=== PATIENT | female | born 1975 | race Hispanic/Latino ===

== ENCOUNTER 2019-09-09 14:14 | Emergency (ER) | payer SELFPAY ==
[~2019-09-09] VITALS: Ht 160 cm; Wt 81.6 kg
[2019-09-09 16:30] LABS: BILIRUBIN,URINE NEGATIVE (NEGATIVE); CLARITY,URINE HAZY (CLEAR); COLOR,URINE YELLOW (YELLOW); KETONES,URINE NEGATIVE (NEGATIVE); LEUKOCYTE ESTERASE ,URINE NEGATIVE (NEGATIVE); NITRITE,URINE NEGATIVE (NEGATIVE); PROTEIN,URINE DIPSTICK NEGATIVE (NEGATIVE); URINE UROBILINOGEN 0.2 mg/dL (0.2 - 1)
[2019-09-09 16:31] LABS: PREGNANCY TEST, URINE NEGATIVE (NEGATIVE)
[2019-09-09 16:33] LABS: BACTERIA,URINE FEW /HPF; EPITHELIAL CELLS,URINE FEW /LPF; RBC,URINE 0-5 /HPF (0-5); WBC,URINE (MAN) 0-5 /HPF (0-5)
[2019-09-09 16:38] VITALS: BP 124/72
--- NOTE | 2019-09-09 17:06 | Emergency Department Note ---
History of Present Illnes History of Present Illness Chief Complaint: General Medicine Complaints History of Present Illness This is a 44 year old female PATIENT IN FROM HOME WITH COMPLAINTS OF DIZZINESS, SWELLING IN HER FEET, WEAKNESS X 1 WEEK; PATIENT STATES "I DON'T FEEL LIKE I AM GETTING ENOUGH BLOOD TO MY BRAIN". PATIENT ALERT AND ORIENTED, RESP EVEN AND NONLABORED, APPEARS IN NO DISTRESS. PATIENT AFEBRILE, WITH O2 SATS 98% ON ROOM AIR. PATIENT ABLE TO SPEAK IN FULL SENTENCES AND AMBULATORY WITH A STEADY GAIT WITHOUT ASSISTANCE, NO EDEMA NOTED TO BILATERAL LOWER EXTREMITIES. Historian: Patient, Family Member Arrival Mode: Car Bronzer Required: No Onset (how long ago): week(s) (1) Location: NO PAIN Radiation: Reports non-radiation Severity: mild Onset quality: gradual Progression: improving Chronicity: new Context: Denies recent illness Relieving factors: none Exacerbating factors: none Associated symptoms: Reports denies other symptoms Treatments prior to arrival: none Past Medical/Family History Physician Review I have reviewed the patient's past medical and family history. Any updates have been documented here. Past Medical History Recent Fever: No Clinical Suspicion of Infectio: No New/Unexplained Change in Ment: No Past Medical History: Kidney Stones Other Medical History: "RETAINING FLUID" Past Surgical History: None Other Surgery: LEFT KIDNEY STENT Social History Smoking Cessation: Never Smoker Counseling Performed: No Alcohol Use: None Any Illegal Drug Use: No TB Exposure/Symptoms: No Physically hurt or threatened: No Family History Family history of heart diseas: No Other Last Tetanus: UTD Any Pre-Existing Lines (PICC,: No Is patient up to date on immun: No Last Flu: unk Last Pneumovax: ood Review of Systems Review of Systems Constitutional: Reports as per HPI EENTM: Reports no symptoms Cardiovascular: Reports no symptoms Respiratory: Reports no symptoms Gastrointestinal: Reports no symptoms Genitourinary: Reports no symptoms Musculoskeletal: Reports no symptoms Integumentary: Reports no symptoms Neurological: Reports no symptoms Psychological: Reports no symptoms Endocrine: Reports no symptoms Hematological/Lymphatic: Reports no symptoms Physical Exam Related Data Allergies: Coded Allergies: No Known Allergies (Unverified , 04/02/19) Triage Vital Signs Vital Signs Date Time Temp Pulse Resp B/P (MAP) Pulse Ox O2 Delivery O2 Flow Rate FiO2 09/09/19 14:23 97.8 70 16 135/81 98 Vital signs reviewed: Yes Physical Exam CONSTITUTIONAL Constitutional: Present well-developed, Present well-nourished HENT HENT: Present normocephalic, Present atraumatic, Present oropharynx clear/moist, Present nose normal HENT L/R: Present left ext ear normal, Present right ext ear normal EYES Eyes: Reports PERRL, Reports conjunctivae normal NECK Neck: Present ROM normal PULMONARY Pulmonary: Present effort normal, Present breath sounds normal CARDIOVASCULAR Cardiovascular: Present regular rhythm, Present heart sounds normal, Present capillary refill normal, Present normal rate GASTROINTESTINAL Abdominal: Present soft, Present nontender, Present bowel sounds normal GENITOURINARY Genitourinary: Present exam deferred SKIN Skin: Present warm, Present dry MUSCULOSKELETAL Musculoskeletal: Present ROM normal NEUROLOGICAL Neurological: Present alert, Present oriented x 3, Present DTRs normal, Present no gross motor or sensory deficits PSYCHOLOGICAL Psychological: Present mood/affect normal, Present judgement normal Results Laboratory Laboratory Laboratory Tests Test 09/09/19 16:02 Urine Color Yellow (YELLOW) Urine Clarity Hazy (CLEAR) Urine pH 5.5 (5 - 7) Urine Specific Powell 1.015 (1.010-1.025) Urine Protein Negative (NEGATIVE) Urine Glucose (UA) Negative (NEGATIVE) Urine Ketones Negative (NEGATIVE) Urine Blood 1+ (NEGATIVE) Urine Nitrite Negative (NEGATIVE) Urine Bilirubin Negative (NEGATIVE) Urine Urobilinogen 0.2 mg/dL (0.2 - 1) Urine Leukocyte Esterase Negative (NEGATIVE) Urine RBC 0-5 /HPF (0-5) Urine WBC 0-5 /HPF (0-5) Urine Epithelial Cells Few /LPF (NONE) Urine Bacteria Few /HPF (NONE) Urine Test Negative (NEGATIVE) Lab results reviewed: Yes Assessment & Plan Medical Decision Making MDM MULTIPLE COMPLAINTS, NORMAL EXAM, DOES NOT APPEAR ILL - WILL JUST CHECK UA AND PREG Reassessment Reassessment DC WITH MECLIZINE Assessment & Plan Final Impression: (1) Dizziness Depart Disposition: HOME, SELF-CARE Last Vital Signs Date Time Temp Pulse Resp B/P (MAP) Pulse Ox O2 Delivery O2 Flow Rate FiO2 09/09/19 16:38 57 16 100 09/09/19 16:36 124/72 09/09/19 14:23 97.8 EMERITA SANTANA MD Sep 09, 2019 17:06
== END 2019-09-09 17:49 | disposition home or self-care (01) ==
LOC: ER 14:14
DX: R42 Dizziness and giddiness (principal); M79.89 Other specified soft tissue disorders
CPT/HCPCS: 81001; 81025; 87086; 99282

== ENCOUNTER 2019-10-21 10:18 | Emergency (ER) | payer SELFPAY ==
[~2019-10-21] VITALS: Ht 160 cm; Wt 81.6 kg
--- OUTSIDE RECORDS SUMMARY | 2019-10-21 10:49 | XMS REPORT | Continuity of Care Document ---
Author Author [facility] t Organization [facility] Address [address] [place] [address] Phone Unavailable Care Team Providers Care Route Specialist Name Role Phone NO, PCP PCP Unavailable Margaux SANTANA Attphys Unavailable SELVIN GONZALEZ Attphys Unavailable Problems Condition Name Condition Details Condition Category Status Onset Date Resolution Date Last Treatment Date Treating Clinician Comments Source Dizziness Problem Active [facility] Allergies, Adverse Reactions, Alerts This patient has no known allergies or adverse reactions. Social History Social Habit Start Date Stop Date Quantity Comments Source Sex Assigned At 1975 00:00:00 1975 00:00:00 Female [facility] Medications This patient has no known medications. Vital Signs Vital Name Observation Time Observation Value Comments Source Weight 2019-09-09 14:23:00 180 [lb_av] [facility] BMI (Body Mass Index) 2019-09-09 14:23:00 31.9 kg/m2 [facility] Body Temperature 2019-04-02 21:55:00 97.8 [degF] [facility] Procedures This patient has no known procedures. Plan of Care Planned Activity Planned Date Details Comments Source Instructions Dizziness [facility] Encounters Start Date/Time End Date/Time Encounter Type Admission Type [facility] Facility Care Department Encounter ID Source 2019-09-09 14:14:00 2019-09-09 17:49:00 Departed Emergency Room [id number] [facility] 2019-04-14 11:34:00 2019-04-14 16:06:00 Departed Emergency Room 1 SWEET, [facility] [id number] [facility] 2019-04-07 11:38:00 2019-04-07 14:22:00 Departed Emergency Room 1 EMERITA SANTANA [facility] [id number] [facility] 2019-04-02 15:48:00 2019-04-02 20:35:00 Departed Emergency Room 1 SELVIN GONZALEZ [facility] [id number] I [facility] Results Test Description Test Time Test Comments Results Result Comments Source Urine color determination 2019-09-09 16:02:00 Test Item Urine Color (test code = 5778-6) YELLOW YELLOW [facility] pvfqvxy9693-88-75 16:02:00* Test Item Value Reference Range Interpretation Comments Urine Clarity (test code = 87859-7) [facility] by Test strip 2019-09-09 16:02:00* Test Item Value Reference Range Interpretation Comments Urine Specific [place] (test code = 5811-5) 1.015 1.010-1.02 5 [facility] pH measurement by automated test betda3264-63-98 16:02:00* Test Item Value Reference Range Interpretation Comments Urine pH (test code = 54957-2) 5.5 5-7 [facility] ChildrenU[facility] leukocyte esterase detection by mvdxzbpo9342-71-29 16:02:00* Test Item Value Reference Range Interpretation Comments Urine Leukocyte Esterase (test code = 5799-2) NEGATIVE NEGATIVE [facility] Children[facility] nitrite yqjataxqc4140-65-71 16:02:00* Test Item Value Reference Range Interpretation Comments Urine Nitrite (test code = 50576-7) NEGATIVE NEGATIVE [facility] Children[facility] protein measurement by test strip (mass/volume)2019-09-09 16:02:00* Test Item Value Reference Range Interpretation Comments Urine Protein (test code = 5804-0) NEGATIVE NEGATIVE [facility] Children[facility] glucose pxdyqymyi3445-63-37 16:02:00* Test Item Value Reference Range Interpretation Comments Urine Glucose (UA) (test code = 2349-9) NEGATIVE NEGATIVE [facility] ChildrenU[facility] ketones detection by automated test whdju5166-20-04 16:02:00* Test Item Value Reference Range Interpretation Comments Urine Ketones (test code = 71217-4) NEGATIVE NEGATIVE [facility] ChildrenUrine urobilinogen measurement by test strip (mass/volume)2019-09-09 16:02:00* Test Item Value Reference Range Interpretation Comments Urine Urobilinogen (test code = 80604-0) 0.2 0.2-1 [facility] ChildrenU[facility] total bilirubin measurement (mass/volume)2019-09-09 16:02:00* Test Item Value Reference Range Interpretation Comments Urine Bilirubin (test code = 1978-6) NEGATIVE NEGATIVE [facility] ChildrenU[facility] erythrocytes wowslwcmx5318-63-39 16:02:00* Test Item Value Reference Range Interpretation Comments Urine Blood (test code = 44681-1) 1+ NEGATIVE [facility] ChildrenAutomated urine sediment leukocyte count by microscopy (number/high power field)2019-09-09 16:02:00* Test Item Value Reference Range Interpretation Comments Urine WBC (test code = 5821-4) 0-5 0-5 [facility] ChildrenErythrocytes detection in urine sediment by light pxflfxqaos1558-83-48 16:02:00* Test Item Value Reference Range Interpretation Comments Urine RBC (test code = 73980-8) 0-5 0-5 [facility] ChildrenBacteria detection in urine sediment by light daskdvmrjy6223-78-34 16:02:00* Test Item Value Reference Range Interpretation Comments Urine Bacteria (test code = 29819-8) FEW NONE [facility] ChildrenEpithelial cells detection in urine sediment by light uhdmzssgsv3089-05-56 16:02:00* Test Item Value Reference Range Interpretation Comments Urine Epithelial Cells (test code = 76727-2) FEW NONE [facility] ChildrenUrine human chorionic gonadotropin (hCG) aeqrbschi1339-14-42 16:02:00* Test Item Value Reference Range Interpretation Comments Urine Test (test code = 2106-3) NEGATIVE NEGATIVE [facility] ChildrenAB[facility] (KUB)2019-04-14 16:44:00 [place] [address] Patient Name: JOSE L WU MR #: [id number] : 1975 Age/Sex: 43/F Req #: [id number] Adm Physician: Ordered by: MARY LOU DALLAS TAX ASSOCIATE Report #: [id number] Location: ER Room/Bed: Procedure: [id number] DX/ ABDOMEN-1VIEW (KU) Exam Date: 04/14/19 Exam Time: 1 516 REPORT STATUS: Signed EXAM: ABDOMEN-1VIEW (KU), DATE: 04/14/2019 INDICATION: Flank pain. COMPARI SON: 04/07/2019. FINDINGS: LINES/TUBES: Left double-J ureteral stent uncha nged in position. BOWEL PATTERN: No evidence for obstruction. Moderate volu me of stool throughout the colon. SOFT TISSUES: 4.8 mm calcific density p reviously present in the proximal left ureter is not visualized on today's exa m.. LUNG BASES: Not included BONES: No acute findings. Unfused posteri or elements of S1 again observed. IMPRESSION: Nonobstructive bowel gas pa ttern. 4.8 mm calcific density previously present in the proximal left u reter is not visualized on today's exam.. Signed by: Dr. Amalia posey M.D. on 04/14/2019 4:47 PM Dictated By: CHENTE SANCHEZ MD, MD Electr onically Signed By: CHENTE SANCHEZ MD, MD on 04/14/191646 Transcribed By: YUMIKO KNOTT on 04/14/191646 COPY TO: SHORT,MARY LOU D TAX ASSOCIATE ABDOMEN-1VIEW (KUB)2019-04-07 14:53:00 [place] [address] Patient Name: JOSE L WU MR #: [id number] : 1975 Age/Sex: 43/F Req #: [id number] Adm Physician: Ordered by: ALONSO AMEZCUA TAX ASSOCIATE Report #: [id number] Location: ER Room/Bed: Procedure: [id number] DX /ABDOMEN-1VIEW (KUB) Exam Date: 04/07/19 Exam Time: 1350 REPORT STATUS: Signed EXAM: ABDOMEN-1VIEW (KUB), DATE: 04/07/2019 12:56 PM INDICATION: Pain. CO MPARISON: 04/02/2019. FINDINGS: LINES/TUBES: Left double-J ureteral stent unchanged in position. BOWEL PATTERN: No evidence for obstruction. Moderate volume of stool throughout the colon. SOFT TISSUES: 4.8 mm calcific dens ity in the proximal left ureter. LUNG BASES: Not included BONES: No ac [place] findings. IMPRESSION: Nonobstructive bowel gas pattern. 4.8 m m calcific density in the proximal left ureter. Signed by: Dr. Amalia Sanchez M.D. on 04/07/2019 2:55 PM Dictated By: CHENTE FONG MD, MD [id number] Trans cribed By: MINI on 04/07/19 6679 COPY TO: ALONSO AMEZCUA TAX ASSOCIATE Blood leukocytes automated count (number/volume)2019-04-07 12:00:00* Test Item Value Reference Range Interpretation Comments White Blood Count (test code = 6690-2) 6.73 4.8-10.8 [facility] ChildrenBlood erythrocytes automated count (number/volume)2019-04-07 12:00:00* Test Item Value Reference Range Interpretation Comments Red Blood Count (test code = 789-8) 4.08 3.6-5.1 [facility] ChildrenBlood hemoglobin measurement (moles/volume)2019-04-07 12:00:00* Test Item Value Reference Range Interpretation Comments Hemoglobin (test code = 07138-6) 12.5 12.0-16.0 [facility] ChildrenAutomated blood hematocrit (volume fraction)2019-04-07 12:00:00* Test Item Value Reference Range Interpretation Comments Hematocrit (test code = 4544-3) 37.3 34.2-44.1 [facility] ChildrenAutomated erythrocyte mean corpuscular gsezmn2640-21-75 12:00:00* Test Item Value Reference Range Interpretation Comments Mean Corpuscular Volume (test code = 787-2) 91.4 81-99 [facility] ChildrenAutomated erythrocyte mean corpuscular hemoglobin (mass per erythrocyte)2019-04-07 12:00:00* Test Item Value Reference Range Interpretation Comments Mean Corpuscular Hemoglobin (test code = 785-6) 30.6 28-32 [facility] ChildrenAutomated erythrocyte mean corpuscular hemoglobin concentration measurement (mass/volume)2019-04-07 12:00:00* Test Item Value Reference Range Interpretation Comments Mean Corpuscular Hemoglobin Concent (test code = 786-4) 33.5 31-35 [facility] ChildrenRDW AjoFa-Ats5147-10-18 12:00:00* Test Item Value Reference Range Interpretation Comments Red Cell Distribution Width (test code = 72777-3) 12.5 11.7 -14.4 [facility] ChildrenAutomated blood platelet count (count/volume)2019-04-07 12:00:00* Test Item Value Reference Range Interpretation Comments Platelet Count (test code = 777-3) 308 140-360 [facility] segmented neutrophil count as percentage of total yaurfhkyhy3846-17-05 12:00:00* Test Item Value Reference Range Interpretation Comments Neutrophils (%) (Auto) (test code = 31949-1) 60.3 38.7-80.0 [facility] ChildrenAutomated blood lymphocyte count as percentage ot total drasgbmxeb4073-72-06 12:00:00* Test Item Value Reference Range Interpretation Comments Lymphocytes (%) (Auto) (test code = 736-9) 30.0 18.0-39.1 [facility] ChildrenAutomated blood monocyte count as percentage of total sgwxkfjgvf8771-24-62 12:00:00* Test Item Value Reference Range Interpretation Comments Monocytes (%) (Auto) (test code = 5905-5) 5.1 4.4-11.3 [facility] ChildrenAutomated blood eosinophil count as percentage of total qzmpbkraqf1832-75-16 12:00:00* Test Item Value Reference Range Interpretation Comments Eosinophils (%) (Auto) (test code = 713-8) 3.9 0.0-6.0 [facility] ChildrenAutomated blood basophil count as percentage of total ofacvpnwfj1894-45-51 12:00:00* Test Item Value Reference Range Interpretation Comments Basophils (%) (Auto) (test code = 706-2) 0.3 0.0-1.0 [facility] ChildrenFluoroscopic procedure less than one hour wvqlafuw7466-71-61 12:00:00* Test Item Value Reference Range Interpretation Comments IM GRANULOCYTES % (test code = IM GRANULOCYTES %) 0.4 0.0- 1.0 [facility] ChildrenAutomated blood neutrophil count 2019-04-07 12:00:00* Test Item Value Reference Range Interpretation Comments Neutrophils # (Auto) (test code = 751-8) 4.1 2.1-6.9 [facility] ChildrenBlood lymphocytes count (number/volume) 2019-04-07 12:00:00* Test Item Value Reference Range Interpretation Comments Lymphocytes # (Auto) (test code = 60658-0) 2.0 1.0-3.2 [facility] ChildrenBlood monocytes automated count (number/volume)2019-04-07 12:00:00* Test Item Value Reference Range Interpretation Comments Monocytes # (Auto) (test code = 742-7) 0.3 0.2-0.8 [facility] ChildrenAutomated blood eosinophil count 2019-04-07 12:00:00* Test Item Value Reference Range Interpretation Comments Eosinophils # (Auto) (test code = 711-2) 0.3 0.0-0.4 [facility] ChildrenAutomated blood basophil count (count/volume)2019-04-07 12:00:00* Test Item Value Reference Range Interpretation Comments Basophils # (Auto) (test code = 704-7) 0.0 0.0-0.1 [facility] ChildrenFluoroscopic procedure less than one hour kprrzvvo7242-68-71 12:00:00* Test Item Value Reference Range Interpretation Comments Absolute Immature Granulocyte (auto (rodrigo t code = Absolute Immature Granulocyte (auto) 0.03 0-0.1 [facility] or plasma sodium measurement (moles/volume)2019-04-07 12:00:00* Test Item Value Reference Range Interpretation Comments Sodium Level (test code = 2951-2) 139 136-145 [facility] or plasma potassium measurement (moles/volume)2019-04-07 12:00:00* Test Item Value Reference Range Interpretation Comments Potassium Level (test code = 2823-3) 4.1 3.5-5.1 [facility] or plasma chloride measurement (moles/volume)2019-04-07 12:00:00* Test Item Value Reference Range Interpretation Comments Chloride Level (test code = 2075-0) 104 98-107 [facility] or plasma carbon dioxide, total measurement (moles/volume)2019-04-07 12:00:00* Test Item Value Reference Range Interpretation Comments Carbon Dioxide Level (test code = 2028-9) 26 22-29 [facility] or plasma anion umo9421-97-09 12:00:00* Test Item Value Reference Range Interpretation Comments Anion Gap (test code = 76914-1) 13.1 8-16 [facility] or plasma urea nitrogen measurement (mass/volume)2019-04-07 12:00:00* Test Item Value Reference Range Interpretation Comments Blood Urea Nitrogen (test code = 3094-0) 11 - [facility] or plasma creatinine measurement (mass/volume)2019-04-07 12:00:00* Test Item Value Reference Range Interpretation Comments Creatinine (test code = 2160-0) 0.63 0.57-1.11 [facility] or plasma urea nitrogen/creatinine mass rbeyt7348-25-45 12:00:00* Test Item Value Reference Range Interpretation Comments BUN/Creatinine Ratio (test code = 3097-3) 17 6- [facility] ChildrenEstimated glomerular filtration rate (GFR) pqjcpfjetinin2069-20-10 12:00:00* Test Item Value Reference Range Interpretation Comments Estimat Glomerular Filtration Rate (test code = 883749227) > 60 >60 Ranges were taken from the National Kidney Disease Education Program and the [facility] Kidney Foundation literature.Reference ranges:60 or greater: Aopkvp47-58 ( for 3 consecutive months): Chronic kidney disease 15 or less: Kidney failureTexas [facility] Rite Hospital for ChildrenGlucose pfvmoxiocla3418-69-51 12:00:00* Test Item Value Reference Range Interpretation Comments Glucose Level (test code = BWO1955) 108 74-118 [facility] or plasma calcium measurement (mass/volume)2019-04-07 12:00:00* Test Item Value Reference Range Interpretation Comments Calcium Level (test code = 13738-7) 8.8 8.4-10.2 [facility] or plasma total bilirubin measurement (mass/volume)2019-04-07 12:00:00* Test Item Value Reference Range Interpretation Comments Total Bilirubin (test code = 1975-2) 0.3 0.2-1.2 [facility] ChildrenFluoroscopic procedure less than one hour qeqtawai6217-91-53 12:00:00* Test Item Value Reference Range Interpretation Comments Aspartate Amino Transf (AST/SGOT) (test code = Aspartate Amino Transf (AST/SGOT)) 24 5-34 [facility] or plasma alanine aminotransferase measurement (enzymatic activity/volume)2019-04-07 12:00:00* Test Item Value Reference Range Interpretation Comments Alanine Aminotransferase (ALT/SGPT) (test code = 1742-6) 28 0-55 [facility] or plasma protein measurement (mass/volume)2019-04-07 12:00:00* Test Item Value Reference Range Interpretation Comments Total Protein (test code = 2885-2) 6.9 6.5-8.1 [facility] or plasma albumin measurement (mass/volume)2019-04-07 12:00:00* Test Item Value Reference Range Interpretation Comments Albumin (test code = 1751-7) 3.9 3.5-5.0 [facility] ChildrenPlasma globulin measurement (mass/volume) 2019-04-07 12:00:00* Test Item Value Reference Range Interpretation Comments Globulin (test code = 93670-6) 3.0 2.3-3.5 [facility] or plasma albumin/globulin mass oqkgf5618-09-45 12:00:00* Test Item Value Reference Range Interpretation Comments Albumin/Globulin Ratio (test code = 1759-0) 1.3 0.8-2.0 [facility] or plasma alkaline phosphatase measurement (enzymatic activity/volume)2019-04-07 12:00:00* Test Item Value Reference Range Interpretation Comments Alkaline Phosphatase (test code = 6768-6) 68 40-150 [facility]rum or plasma choriogonadotropin ( test) yuyaaangg9464-94-36 12:00:00* Test Item Value Reference Range Interpretation Comments Human Chorionic Gonadotropin, Qual (test code = 2118-8) NEGATIVE NEGATIVE [facility] ChildrenABDOMEN-1VIEW (KUB)2019-04-02 20:05:00 [facility] [address] [place] [address] Patient Name: JOSE L WU MR #: [id number] : 1975 Age/Sex: 43/F Req #: [id number] Adm Physician: Ordered by: DARLENE VIVAR NP Report #: [id number] Location: ER Room/Bed: Procedure: [id number] DX/ ABDOMEN-1VIEW (KUB) Exam Date: Exam Time: REPORT STATUS: Signed Exam: KUB. Clinical History: Left-sided pain. Hematuria Comparison: None Finding s: Frontal view of the abdomen demonstrates a nonobstructive bowel gas pattern with moderate retained stool. There are no suspicious calcifications.Left ure teral catheter. Impression: There are no suspicious calcifications. Lef t ureteral catheter. Signed by: Dr. Prabha Tolbert M.D. on 04/02/2019 8:07 PM Dictated By: PRABHA TOLBERT MD, MD 06 Transcribed By: MINI on 04/02/192006 COPY TO: DARLENE VIVAR NP Sodium Nhhvm6517-21-85 19:46:00* Test Item Value Reference Range Interpretation Comments Sodium Level (test code = 2951-2) 140 136-145 [facility] ChildrenPotassium Vndlq0829-34-12 19:46:00* Test Item Value Reference Range Interpretation Comments Potassium Level (test code = 2823-3) 4.1 3.5-5.1 [facility] ChildrenChloride Pjsen3794-56-66 19:46:00* Test Item Value Reference Range Interpretation Comments Chloride Level (test code = 2075-0) 103 98-107 [facility] ChildrenCarbon Dioxide Tnosv3617-45-28 19:46:00* Test Item Value Reference Range Interpretation Comments Carbon Dioxide Level (test code = 2028-9) 27 22-29 [facility] ChildrenAnion Hmo0628-16-44 19:46:00* Test Item Value Reference Range Interpretation Comments Anion Gap (test code = 51366-2) 14.1 8-16 [facility] ChildrenBlood Urea Bmkmnono3723-81-21 19:46:00* Test Item Value Reference Range Interpretation Comments Blood Urea Nitrogen (test code = 3094-0) 6 7-26 L [facility] ChildrenCreatinine2020-01-13 19:46:00* Test Item Value Reference Range Interpretation Comments Creatinine (test code = 2160-0) 0.66 0.57-1.11 [facility] ChildrenBUN/Creatinine Xjhdm6319-13-18 19:46:00* Test Item Value Reference Range Interpretation Comments BUN/Creatinine Ratio (test code = 3097-3) 9 6-25 [facility] ChildrenEstimat Glomerular Filtration Rate 2019-04-02 19:46:00* Test Item Value Reference Range Interpretation Comments Estimat Glomerular Filtration Rate (test code = 782238725) > 60 >60 Ranges were taken from the National Kidney Disease Education Program and the [facility] Kidney Foundation literature.Reference ranges:60 or greater: Svblja36-51 ( for 3 consecutive months): Chronic kidney disease 15 or less: Kidney failureTexas Scottish Rite Hospital for ChildrenGlucose Vlmag9872-56-76 19:46:00* Test Item Value Reference Range Interpretation Comments Glucose Level (test code = WBP9502) 105 74-118 [facility] ChildrenCalcium Oaaix4722-26-33 19:46:00* Test Item Value Reference Range Interpretation Comments Calcium Level (test code = 83794-1) 9.3 8.4-10.2 [facility] ChildrenTotal Odfsvxnhj9733-63-69 19:46:00* Test Item Value Reference Range Interpretation Comments Total Bilirubin (test code = 1975-2) 0.3 0.2-1.2 [facility] ChildrenAspartate Amino Transf (AST/SGOT) 2019-04-02 19:46:00* Test Item Value Reference Range Interpretation Comments Aspartate Amino Transf (AST/SGOT) (test code = Aspartate Amino Transf (AST/SGOT)) 18 5-34 [facility] ChildrenAlanine Aminotransferase (ALT/SGPT) 2019-04-02 19:46:00* Test Item Value Reference Range Interpretation Comments Alanine Aminotransferase (ALT/SGPT) (test code = 1742-6) 21 0-55 [facility] ChildrenTotal Fqcbqag9120-53-10 19:46:00* Test Item Value Reference Range Interpretation Comments Total Protein (test code = 2885-2) 7.8 6.5-8.1 [facility] ChildrenAlbumin2020-01-13 19:46:00* Test Item Value Reference Range Interpretation Comments Albumin (test code = 1751-7) 4.1 3.5-5.0 [facility] ChildrenGlobulin2020-01-13 19:46:00* Test Item Value Reference Range Interpretation Comments Globulin (test code = 50688-5) 3.7 2.3-3.5 H [facility] ChildrenAlbumin/Globulin Pcplv3301-24-46 19:46:00 * Test Item Value Reference Range Interpretation Comments Albumin/Globulin Ratio (test code = 1759-0) 1.1 0.8-2.0 [facility] ChildrenAlkaline Tpqyuctfgbo4400-81-39 19:46:00* Test Item Value Reference Range Interpretation Comments Alkaline Phosphatase (test code = 6768-6) 65 40-150 [facility] ChildrenAmylase Hbsib9982-81-99 19:46:00* Test Item Value Reference Range Interpretation Comments Amylase Level (test code = 1798-8) 52 25-125 [facility] ChildrenLipase2020-01-13 19:46:00* Test Item Value Reference Range Interpretation Comments Lipase (test code = 3040-3) 10 8-78 [facility] ChildrenUrine CAP0803-42-84 19:44:00* Test Item Value Reference Range Interpretation Comments Urine WBC (test code = 5821-4) 11-20 0-5 H [facility] ChildrenUrine VOK3036-89-67 19:44:00* Test Item Value Reference Range Interpretation Comments Urine RBC (test code = 90965-1) 11-20 0-5 H [facility] ChildrenUrine Dmuxxbtt4939-38-37 19:44:00* Test Item Value Reference Range Interpretation Comments Urine Bacteria (test code = 55082-1) RARE NONE [facility] ChildrenUrine Epithelial Pwdnx2790-91-53 19:44:00 * Test Item Value Reference Range Interpretation Comments Urine Epithelial Cells (test code = 16754-1) FEW NONE [facility] ChildrenUrine Calcium Oxalate Nnzdzwmd5197-09-10 19:44:00* Test Item Value Reference Range Interpretation Comments Urine Calcium Oxalate Crystals (test code = 5774-5) RARE FE W [facility] ChildrenUrine Rlbrz3965-16-63 19:27:00* Test Item Value Reference Range Interpretation Comments Urine Color (test code = 5778-6) YELLOW YELLOW [facility] ChildrenUrine Cevutnd9057-05-15 19:27:00* Test Item Value Reference Range Interpretation Comments Urine Clarity (test code = 58069-9) SL CLOUDY CLEAR [facility] ChildrenUrine Specific Fpaasnv4676-05-56 19:27:00 * Test Item Value Reference Range Interpretation Comments Urine Specific [place] (test code = 5811-5) 1.015 1.010-1.02 5 [facility] ChildrenUrine uX2238-89-76 19:27:00* Test Item Value Reference Range Interpretation Comments Urine pH (test code = 45729-8) 7.5 5-7 [facility] ChildrenUrine Leukocyte Ssyebqzm7270-30-72 19:27:00* Test Item Value Reference Range Interpretation Comments Urine Leukocyte Esterase (test code = 5799-2) [facility] [id number] 19:27:00* Test Item Value Reference Range Interpretation Comments Urine Nitrite (test code = 70801-7) POSITIVE NEGATIVE [facility] [id number] 19:27:00* Test Item Value Reference Range Interpretation Comments Urine Protein (test code = 5804-0) 1+ NEGATIVE [facility] Glucose (UA)2019-04-02 19:27:00* Test Item Value Reference Range Interpretation Comments Urine Glucose (UA) (test code = 2349-9) NEGATIVE [facility]GATIVE [facility] [id number] 19:27:00* Test Item Value Reference Range Interpretation Comments Urine Ketones (test code = 93834-1) NEGATIVE NEGATIVE [facility] [id number] 19:27:00* Test Item Value Reference Range Interpretation Comments Urine Urobilinogen (test code = 38677-5) 0.2 0.2-1 [facility] [id number] 19:27:00* Test Item Value Reference Range Interpretation Comments Urine Bilirubin (test code = 1978-6) SMALL NEGATIVE [facility] [id number] 19:27:00* Test Item Value Reference Range Interpretation Comments Urine Blood (test code = 95077-2) TRACE NEGATIVE H [facility] ChildrenWhite Blood [id number] 19:21:00* Test Item Value Reference Range Interpretation Comments White Blood Count (test code = 6690-2) 9.85 4.8-10.8 [facility] ChildrenRed Blood [id number] 19:21:00* Test Item Value Reference Range Interpretation Comments Red Blood Count (test code = 789-8) 4.19 3.6-5.1 [facility] ChildrenHemoglobin2020-01-13 19:21:00* Test Item Value Reference Range Interpretation Comments Hemoglobin (test code = 22860-7) 12.6 12.0-16.0 [facility] ChildrenHematocrit2020-01-13 19:21:00* Test Item Value Reference Range Interpretation Comments Hematocrit (test code = 4544-3) 38.6 34.2-44.1 [facility] ChildrenMean Corpuscular [id number] 19:21:00* Test Item Value Reference Range Interpretation Comments Mean Corpuscular Volume (test code = 787-2) 92.1 81-99 [facility] ChildrenMean Corpuscular [id number] 19:21:00* Test Item Value Reference Range Interpretation Comments Mean Corpuscular Hemoglobin (test code = 785-6) 30.1 28-32 [facility] ChildrenMean Corpuscular Hemoglobin Concent 2019-04-02 19:21:00* Test Item Value Reference Range Interpretation Comments Mean Corpuscular Hemoglobin Concent (test code = 786-4) 32.6 31-35 [facility] ChildrenRed Cell Distribution [id number] 19:21:00* Test Item Value Reference Range Interpretation Comments Red Cell Distribution Width (test code = 03546-2) 12.6 11.7 -14.4 [facility] ChildrenPlatelet [id number] 19:21:00* Test Item Value Reference Range Interpretation Comments Platelet Count (test code = 777-3) 284 140-360 [facility] ChildrenNeutrophils (%) (Auto)2019-04-02 19:21:00 * Test Item Value Reference Range Interpretation Comments Neutrophils (%) (Auto) (test code = 26651-0) 73.7 38.7-80.0 [facility] ChildrenLymphocytes (%) (Auto)2019-04-02 19:21:00 * Test Item Value Reference Range Interpretation Comments Lymphocytes (%) (Auto) (test code = 736-9) 19.1 18.0-39.1 [facility] ChildrenMonocytes (%) (Auto)2019-04-02 19:21:00* Test Item Value Reference Range Interpretation Comments Monocytes (%) (Auto) (test code = 5905-5) 4.4 4.4-11.3 [facility] ChildrenEosinophils (%) (Auto)2019-04-02 19:21:00 * Test Item Value Reference Range Interpretation Comments Eosinophils (%) (Auto) (test code = 713-8) 2.3 0.0-6.0 [facility] ChildrenBasophils (%) (Auto)2019-04-02 19:21:00* Test Item Value Reference Range Interpretation Comments Basophils (%) (Auto) (test code = 706-2) 0.3 0.0-1.0 [facility] ChildrenIM GRANULOCYTES %2019-04-02 19:21:00* Test Item Value Reference Range Interpretation Comments IM GRANULOCYTES % (test code = IM GRANULOCYTES %) 0.2 0.0- 1.0 [facility] ChildrenNeutrophils # (Auto)2019-04-02 19:21:00* Test Item Value Reference Range Interpretation Comments Neutrophils # (Auto) (test code = 751-8) 7.3 2.1-6.9 H [facility] ChildrenLymphocytes # (Auto)2019-04-02 19:21:00* Test Item Value Reference Range Interpretation Comments Lymphocytes # (Auto) (test code = 19183-2) 1.9 1.0-3.2 [facility] ChildrenMonocytes # (Auto)2019-04-02 19:21:00* Test Item Value Reference Range Interpretation Comments Monocytes # (Auto) (test code = 742-7) 0.4 0.2-0.8 [facility] ChildrenEosinophils # (Auto)2019-04-02 19:21:00* Test Item Value Reference Range Interpretation Comments Eosinophils # (Auto) (test code = 711-2) 0.2 0.0-0.4 [facility] ChildrenBasophils # (Auto)2019-04-02 19:21:00* Test Item Value Reference Range Interpretation Comments Basophils # (Auto) (test code = 704-7) 0.0 0.0-0.1 [facility] ChildrenAbsolute Immature Granulocyte (auto 2019-04-02 19:21:00* Test Item Value Reference Range Interpretation Comments Absolute Immature Granulocyte (auto (rodrigo t code = Absolute Immature Granulocyte (auto) 0.02 0-0.1 [facility] amylase measurement (enzymatic activity/volume)2019-04-02 18:00:00* Test Item Value Reference Range Interpretation Comments Amylase Level (test code = 1798-8) 52 25-125 [facility] or plasma lipase measurement (enzymatic activity/volume)2019-04-02 18:00:00* Test Item Value Reference Range Interpretation Comments Lipase (test code = 3040-3) 10 8-78 [facility] ChildrenCalcium oxalate crystals detection in urine sediment by light [id number] 16:20:00* Test Item Value Reference Range Interpretation Comments Urine Calcium Oxalate Crystals (test code = 5774-5) RARE FE W [facility]
[2019-10-21 11:17] LABS: BASOPHILS % 0.3 % (0.0-1.0); EOSINOPHILS # (AUTO) 0.1 (0.0-0.4); EOSINOPHILS % 1.6 % (0.0-6.0); HEMATOCRIT 38.2 % (34.2-44.1); HEMOGLOBIN 12.8 g/dL (12.0-16.0); LYMPHOCYTES % 27.1 % (18.0-39.1); MEAN CORPUSCULAR HGB CONC 33.5 g/dL (31-35); MEAN CORPUSCULAR VOLUME 89.5 fL (81-99); MONOCYTES # (AUTO) 0.5 (0.2-0.8); MONOCYTES % 6.8 % (4.4-11.3); NEUTROPHILS # (AUTO) 4.7 (2.1-6.9); NEUTROPHILS % 63.8 % (38.7-80.0); PLATELET COUNT 278 x10e3/uL (140-360); RED BLOOD COUNT 4.27 x10e6/uL (3.6-5.1); RED CELL DISTRIBUTION WIDTH 12.1 % (11.7-14.4)
[2019-10-21] MEDS ORDERED: SODIUM CHLORIDE 0.9% 1000ML 1,000 ML IV STA (11:24)
[2019-10-21] MEDS ORDERED: KETOROLAC TROMETHAMINE 30 MG/ML VIAL IV STA (11:24)
[2019-10-21 11:37] LABS: ALANINE AMINOTRANSFERASE 25 IU/L (0-55); ALBUMIN 3.8 g/dL (3.5-5.0); ALBUMIN/GLOBULIN RATIO 1.1 (0.8-2.0); ALKALINE PHOSPHATASE 76 IU/L (40-150); ANION GAP 13.7 mmol/L (8-16); BLOOD UREA NITROGEN 13 mg/dL (7-26); BUN/CREATININE RATIO 22 (6-25); CALCIUM 8.9 mg/dL (8.4-10.2); CARBON DIOXIDE 24 mmol/L (22-29); CHLORIDE 105 mmol/L (98-107); CREATINE KINASE 41 IU/L (29-168); EST GLOMERULAR FILTRATION RATE > 60 ML/MIN (60-); GLUCOSE 102 mg/dL (74-118); POTASSIUM 3.7 mmol/L (3.5-5.1); SODIUM 139 mmol/L (136-145)
[2019-10-21 12:01] LABS: CLARITY,URINE CLEAR (CLEAR); COLOR,URINE COLORLESS (YELLOW); KETONES,URINE NEGATIVE (NEGATIVE); LEUKOCYTE ESTERASE ,URINE NEGATIVE (NEGATIVE); NITRITE,URINE NEGATIVE (NEGATIVE); PROTEIN,URINE DIPSTICK NEGATIVE (NEGATIVE)
[2019-10-21 12:02] LABS: BACTERIA,URINE RARE /HPF; BILIRUBIN,URINE NEGATIVE (NEGATIVE); EPITHELIAL CELLS,URINE FEW /LPF; URINE UROBILINOGEN 0.2 mg/dL (0.2 - 1)
[2019-10-21 12:04] LABS: PREGNANCY TEST, URINE NEGATIVE (NEGATIVE)
[2019-10-21 12:20] LABS: INR 0.95; PROTHROMBIN TIME 13.2 seconds (11.9-14.5)
--- NOTE | 2019-10-21 12:50 | Emergency Department Note ---
History of Present Illnes History of Present Illness Chief Complaint: COVID PUI History of Present Illness This is a 44 year old female PT COVID POSITIVE ONE MONTH AGO AND RE TESTED YESTERDAY AND TOLD NEGATIVE. TODAY PT WITH PAIN IN CHEST TO HER BACK. COUGHING AND SOB. PT AAOX4. AMBULATORY NO DISTRESS. PT NON SMOKER. Historian: Patient, Progressive Care Nurse/EMS Arrival Mode: [facility] Treatment ASSISTANT PASTRY CHEF: IV, EKG, See EMS Report Additional Treatment ASSISTANT PASTRY CHEF: LH 22G Bond Writer Required: No Onset (how long ago): day(s) (1) Location: CHEST Quality: PAIN, SOB Radiation: Reports non-radiation Severity: moderate Onset quality: gradual Timing of current episode: intermittent Progression: waxing and waning Chronicity: new Context: Reports recent illness Relieving factors: none Exacerbating factors: none Associated symptoms: Reports chest pain, Reports cough, Reports shortness of breath Past Medical/Family History Physician Review I have reviewed the patient's past medical and family history. Any updates have been documented here. Past Medical History Recent Fever: No Clinical Suspicion of Infectio: No New/Unexplained Change in Ment: No Past Medical History: Kidney Stones, Anxiety Other Medical History: "RETAINING FLUID" Past Surgical History: None Other Surgery: LEFT KIDNEY STENT Social History Smoking Cessation: Never Smoker Counseling Performed: No Alcohol Use: Occasional Any Illegal Drug Use: No TB Exposure/Symptoms: No Physically hurt or threatened: No Family History Family history of heart diseas: No Other Last Tetanus: UTD Review of Systems Review of Systems Constitutional: Reports as per HPI, Reports chills, Reports fever EENTM: Reports no symptoms Cardiovascular: Reports no symptoms Respiratory: Reports as per HPI, Reports cough, Reports dyspnea Gastrointestinal: Reports no symptoms Genitourinary: Reports no symptoms Musculoskeletal: Reports no symptoms Integumentary: Reports no symptoms Neurological: Reports no symptoms Psychological: Reports no symptoms Endocrine: Reports no symptoms Hematological/Lymphatic: Reports no symptoms Physical Exam Related Data Allergies: Coded Allergies: No Known Allergies (Unverified , 04/02/19) Triage Vital Signs Vital Signs Date Time Temp Pulse Resp B/P (MAP) Pulse Ox O2 Delivery O2 Flow Rate FiO2 10/21/19 10:23 98.4 92 18 158/85 99 Room Air Vital signs reviewed: Yes Physical Exam CONSTITUTIONAL Constitutional: Present well-developed, Present well-nourished HENT HENT: Present normocephalic, Present atraumatic, Present oropharynx clear/mois t, Present nose normal HENT L/R: Present left ext ear normal, Present right ext ear normal EYES Eyes: Reports PERRL, Reports conjunctivae normal NECK Neck: Present ROM normal PULMONARY Pulmonary: Present effort normal, Present breath sounds normal CARDIOVASCULAR Cardiovascular: Present regular rhythm, Present heart sounds normal, Present capillary refill normal, Present normal rate GASTROINTESTINAL Abdominal: Present soft, Present nontender, Present bowel sounds normal GENITOURINARY Genitourinary: Present exam deferred SKIN Skin: Present warm, Present dry MUSCULOSKELETAL Musculoskeletal: Present ROM normal NEUROLOGICAL Neurological: Present alert, Present oriented x 3, Present no gross motor or sensory deficits PSYCHOLOGICAL Psychological: Present mood/affect normal, Present judgement normal Results Laboratory Result Diagram: 10/21/19 1103 10/21/19 1103 Laboratory Laboratory Tests Test 10/21/19 11:38 10/21/19 11:03 Urine Color Colorless (YELLOW) Urine Clarity Clear (CLEAR) Urine pH 7.5 (5 - 7) Urine Specific [place] 1.020 (1.010-1.025) Urine Protein Negative (NEGATIVE) Urine Glucose (UA) Negative (NEGATIVE) Urine Ketones Negative (NEGATIVE) Urine Blood Small (NEGATIVE) Urine Nitrite Negative (NEGATIVE) Urine Bilirubin Negative (NEGATIVE) Urine Urobilinogen 0.2 mg/dL (0.2 - 1) Urine Leukocyte Esterase Negative (NEGATIVE) Urine RBC 6-10 /HPF (0-5) Urine WBC 6-10 /HPF (0-5) Urine Epithelial Cells Few /LPF (NONE) Urine Bacteria Rare /HPF (NONE) Urine Test Negative (NEGATIVE) White Blood Count 7.35 x10e3/uL (4.8-10.8) Red Blood Count 4.27 x10e6/uL (3.6-5.1) Hemoglobin 12.8 g/dL (12.0-16.0) Hematocrit 38.2 % (34.2-44.1) Mean Corpuscular Volume 89.5 fL (81-99) Mean Corpuscular Hemoglobin 30.0 pg (28-32) Mean Corpuscular Hemoglobin Concent 33.5 g/dL (31-35) Red Cell Distribution Width 12.1 % (11.7-14.4) Platelet Count 278 x10e3/uL (140-360) Neutrophils (%) (Auto) 63.8 % (38.7-80.0) Lymphocytes (%) (Auto) 27.1 % (18.0-39.1) Monocytes (%) (Auto) 6.8 % (4.4-11.3) Eosinophils (%) (Auto) 1.6 % (0.0-6.0) Basophils (%) (Auto) 0.3 % (0.0-1.0) Neutrophils # (Auto) 4.7 (2.1-6.9) Lymphocytes # (Auto) 2.0 (1.0-3.2) Monocytes # (Auto) 0.5 (0.2-0.8) Eosinophils # (Auto) 0.1 (0.0-0.4) Basophils # (Auto) 0.0 (0.0-0.1) Absolute Immature Granulocyte (auto 0.03 x10e3/uL (0-0.1) Prothrombin Time 13.2 seconds (11.9-14.5) Prothromb Time International Ratio 0.95 Activated Partial Thromboplast Time 30.0 seconds (23.8-35.5) Sodium Level 139 mmol/L (136-145) Potassium Level 3.7 mmol/L (3.5-5.1) Chloride Level 105 mmol/L (98-107) Carbon Dioxide Level 24 mmol/L (22-29) Anion Gap 13.7 mmol/L (8-16) Blood Urea Nitrogen 13 mg/dL (7-26) Creatinine 0.60 mg/dL (0.57-1.11) Estimat Glomerular Filtration Rate > 60 ML/MIN (60-) BUN/Creatinine Ratio 22 (6-25) Glucose Level 102 mg/dL (74-118) Calcium Level 8.9 mg/dL (8.4-10.2) Total Bilirubin 0.4 mg/dL (0.2-1.2) Aspartate Amino Transf (AST/SGOT) 16 IU/L (5-34) Alanine Aminotransferase (ALT/SGPT) 25 IU/L (0-55) Alkaline Phosphatase 76 IU/L (40-150) Creatine Kinase 41 IU/L (29-168) Creatine Kinase MB 0.70 ng/mL (0-5.0) Troponin I 0.012 ng/mL (0-0.300) Total Protein 7.4 g/dL (6.5-8.1) Albumin 3.8 g/dL (3.5-5.0) Globulin 3.6 g/dL (2.3-3.5) Albumin/Globulin Ratio 1.1 (0.8-2.0) Lab results reviewed: Yes Imaging Imaging results reviewed: Yes Impressions EXAM: CT Chest WITH contrast 10/21/2019 12:58 PM INDICATION: Chest pain concerning for pulmonary embolism. COMPARISON: None TECHNIQUE: Chest was scanned utilizing a multidetector helical scanner from the lung apex through the level of the adrenal glands with administration of IV contrast. Coronal and sagittal reformations were obtained. Routine protocol was performed. IV CONTRAST: 100 mL of Omnipaque 300 COMPLICATIONS: None RADIATION DOSE: Total DLP: 416.02 mGy*cm Estimated effective dose: (DLP x 0.014 x size factor) mSv CTDIvol has been reviewed. It is below the limits set by the Radiation Protocol Committee (RPC). Dose modulation, iterative reconstruction, and/or weight based adjustment of the mA/kV was utilized to reduce the radiation dose to as low as reasonably achievable. FINDINGS: LINES/ TUBES: None. VASCULAR: There are no filling defects within the pulmonary arteries to the segmental level. The main pulmonary artery has normal caliber measuring 2.2 cm. The ascending and descending aorta have normal caliber and enhancement measuring 2.9 cm and 2.1 cm, respectively. LUNGS AND AIRWAYS: The lungs are unremarkable. Airways are normal. Bibasilar atelectasis. PLEURA: The pleural spaces are clear. HEART AND MEDIASTINUM: The thyroid gland is normal. No mediastinal, hilar or axillary lymphadenopathy. The heart is normal in size. There is no pericardial effusion. UPPER ABDOMEN: Unremarkable. BONES: The visualized bony thorax is within normal limits. SOFT TISSUES: There is granular hyperattenuation of the anterior mediastinum in the expected location of the thymus with normal mediastinal contour. IMPRESSION: 1. No pulmonary embolism. 2. No focal consolidation, pleural effusion or pneumothorax. 3. Granular hyperattenuation of the anterior mediastinum in the expected location of the thymus which follows normal mediastinal contour. This may represent thymic hyperplasia or remnant thymic tissue. Recommend nonemergent MRI of the upper thorax (thymic mass protocol) for further evaluation of this finding. Signed by: Sharif Avina MD on 10/21/2019 1:39 PM Procedures 12 Lead ECG Interpretation ECG Interpretation : ECG: ECG 1 Bond Writer: Interpreted by ED physician Date: Oct 21, 2019 Time: 10:47 Rhythm: sinus rhythm Rate: normal (74) QRS axis: normal ST segments normal: Yes Clinical Impression: normal ECG Assessment & Plan Medical Decision Making MDM RECENT COVID POSITIVE, CP/SOB TODAY - CHECK CBC, CHEM'S, ECG, CARDIACS, CT CHEST - R/O PNEUMONIA, PULM EMBOLUS, PERICARDIAL EFFUSION, STEMI/NSTEMI Reassessment Reassessment DC HOME, NAPROSYN 500 BID, F/U PCP AND DR Carey REYNA TOMORROW Assessment & Plan Final Impression: (1) Chest pain Depart Disposition: HOME, SELF-CARE Last Vital Signs Date Time Temp Pulse Resp B/P (MAP) Pulse Ox O2 Delivery O2 Flow Rate FiO2 10/21/19 12:17 73 12 131/76 98 Room Air 10/21/19 10:23 98.4 Medications in the ED Sodium Chloride 1,000 ml @ 0 mls/hr Q0M STAT IV Last administered on 10/21/19at 11:59; Admin Dose 999 MLS/HR; Start 10/21/19 at 11:24; Stop 10/21/19 at 11:25; Status DC Ketorolac Tromethamine 30 mg ONCE STAT IV Last administered on 10/21/19at 11:59; Admin Dose 30 MG; Start 10/21/19 at 11:24; Stop 10/21/19 at 11:34; Status DC EMERITA SANTANA MD Oct 21, 2019 12:50
--- NOTE | 2019-10-21 13:42 | Diagnostic Imaging Report ---
EXAM: CT Chest WITH contrast 10/21/2019 12:58 PM INDICATION: Chest pain concerning for pulmonary embolism. COMPARISON: None TECHNIQUE: Chest was scanned utilizing a multidetector helical scanner from the lung apex through the level of the adrenal glands with administration of IV contrast. Coronal and sagittal reformations were obtained. Routine protocol was performed. IV CONTRAST: 100 mL of Omnipaque 300 COMPLICATIONS: None RADIATION DOSE: Total DLP: 416.02 mGy*cm Estimated effective dose: (DLP x 0.014 x size factor) mSv CTDIvol has been reviewed. It is below the limits set by the Radiation Protocol Committee (RPC). Dose modulation, iterative reconstruction, and/or weight based adjustment of the mA/kV was utilized to reduce the radiation dose to as low as reasonably achievable. FINDINGS: LINES/ TUBES: None. VASCULAR: There are no filling defects within the pulmonary arteries to the segmental level. The main pulmonary artery has normal caliber measuring 2.2 cm. The ascending and descending aorta have normal caliber and enhancement measuring 2.9 cm and 2.1 cm, respectively. LUNGS AND AIRWAYS: The lungs are unremarkable. Airways are normal. Bibasilar atelectasis. PLEURA: The pleural spaces are clear. HEART AND MEDIASTINUM: The thyroid gland is normal. No mediastinal, hilar or axillary lymphadenopathy. The heart is normal in size. There is no pericardial effusion. UPPER ABDOMEN: Unremarkable. BONES: The visualized bony thorax is within normal limits. SOFT TISSUES: There is granular hyperattenuation of the anterior mediastinum in the expected location of the thymus with normal mediastinal contour. IMPRESSION: 1. No pulmonary embolism. 2. No focal consolidation, pleural effusion or pneumothorax. 3. Granular hyperattenuation of the anterior mediastinum in the expected location of the thymus which follows normal mediastinal contour. This may represent thymic hyperplasia or remnant thymic tissue. Recommend nonemergent MRI of the upper thorax (thymic mass protocol) for further evaluation of this finding. Signed by: Sharif Avina MD on 10/21/2019 1:39 PM
[2019-10-21 14:04] VITALS: BP 113/68
[2019-10-21] MEDS ORDERED: SODIUM CHLORIDE 0.9% 50ML 50 ML ONE (17:06)
[2019-10-21] MEDS ORDERED: IOPAMIDOL 370 MG/ML 200 ML INFUS..BTL INJ ONE (17:06)
== END 2019-10-21 14:25 | disposition home or self-care (01) ==
LOC: ER 10:40
DX: R07.9 Chest pain, unspecified (principal); R05 Cough; R06.02 Shortness of breath; F41.9 Anxiety disorder, unspecified; Z87.442 Personal history of urinary calculi
CPT/HCPCS: 36415; 71260; 80053; 81001; 81025; 82550; 82553; 84484; 85025; 85610; 85730; 87086; 93005; 99284; J1885; J7030; Q9967